=== PATIENT | male | born 2000 | race African-American/Black ===

== ENCOUNTER 2024-02-19 02:17 | Emergency (ER) | payer OTHER ==
[~2024-02-19] VITALS: Ht 180.3 cm; Wt 68.2 kg
[2024-02-19 03:12] VITALS: BP 135/88; PULSE 69; RESP 16; TEMP 97.9; O2SAT 97
[2024-02-19] MEDS: OXYMETAZOLINE HCL 0.05% 15 ML NASAL SPRAY NASAL ONE (03:30)
[2024-02-19] MEDS: LORATADINE 10 MG TABLET PO ONE (03:50)
== END 2024-02-19 03:52 | disposition home or self-care (01) ==
LOC: EMS 02:17
DX: H69.93 Unspecified Eustachian tube disorder, bilateral (principal); R09.81 Nasal congestion
CPT/HCPCS: 99282; Z7502; Z7610